=== PATIENT | female | born 1950 | race Caucasian/White ===

== ENCOUNTER → 2022-09-16 15:56 | Outpatient (BNVA) | payer MEDICARE, SELFPAY | PROVIDERS: PCP Internal Medicine; Visit Provider Internal Medicine Endocrinology, Diabetes & Metabolism | DX: E83.52 Hypercalcemia (principal) | CPT/HCPCS: 99202 ==

== ENCOUNTER 2022-12-11 07:52 | Outpatient (AMB) | payer MEDICARE, SELFPAY ==
[2022-12-11 07:55] VITALS: BP 138/82; PULSE 61; BMI 28.9
--- NOTE | 2022-12-11 07:55 | A.OFFVIS_ITS ---
Intake Vital Signs 12/11/22 07:55 Height 5 ft 6 in Weight 179 lb 3.773 oz BMI 28.9 BP 138/82 Blood Pressure Location Rt brachial Position Sitting Pulse 61 Pulse Source Pulse Oximeter Intake Visit Reasons: f/u hypercalcemia Intake Note: Patient present for Hypercalcemia follow up visit. Behavior Analyst Required: No Accompanied by: Self / Same As Patient Allergies NSAIDS (Non-Steroidal Anti-Inflamma Adverse Reaction (Unknown, Verified 12/11/22 07:58) Kidney dysfunction Medication List - Last Reconciled 12/11/22 by Jacobo Vu MD allopurinol 300 mg PO cholecalciferol (vitamin D3) 50 mcg PO DAILY lisinopril 40 mg PO lorazepam mg PO metformin ER 500 mg PO BID metoprolol succinate ER 25 mg PO rosuvastatin 10 mg PO DAILY HPI HPI Comments History of Present Illness Details 72 YO F with who is seen in consultation at the request of PCP for Hypercalcemia. First noted to have high calcium 05/2022 . Not Currently using Calcium supplement . Not Takes IU of Vitamin D daily. Is Currently using chlorthalidone on every other day since this yr Kidney stones: No Osteoporosis: Yes History of [place] use: no Biotin use: No Family history of high calcium or kidney stones: No Renal imaging: in July 2022 no kidney stones DXA: Labs: Repeat labs off chlorthalidone show continued increase of calcium and PTH. [facility] Medical History (Updated 12/11/22 @ 08:26 by Jacobo Vu MD) Hypercalcemia Hypertension Surgical History History of back surgery History of surgery on arm History of total abdominal hysterectomy Hx of partial thyroidectomy Family History Mother Diabetes High blood pressure Father Lymphoma Social History Alcohol intake: current Alcohol intake frequency: holidays/special occasions only Patient Tobacco Use Status: Never used Tobacco Physical Exam Vital Signs: Last Vital Signs Pulse 61 12/11/22 07:55 BP 138/82 12/11/22 07:55 BMI result Body Mass Index 28.9 Const Other: There are no cushingoid or acromegalic features. 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 Renal ultrasound did not show the evidence of kidney stones and patient states that recent bone density shows low bone mass but no osteoporosis The plan is for observation. Will obtain DEXA bone density when available for review. Will also recheck calcium and PTH (2) Hypertension: Code(s): I10 - Essential (primary) hypertension Plan: Patient has resistant hypertension currently on 3 agents with poor control. Will screen for secondary hypertension. Will check aldosterone, renin and plasma metanephrines. Orders: Orders Aldosterone Today E83.52 - Hypercalcemia PTHI Today E83.52 - Hypercalcemia Renin Today E83.52 - Hypercalcemia Metanephrines, Plasma Today I10 - Essential (primary) hypertension Coding Level of Care Code Est Pt Level 3 (34191) Diagnoses Hypercalcemia E83.52 Hypertension I10
== END 2022-12-11 08:35 | disposition home or self-care (01) ==
PROVIDERS: PCP Internal Medicine; Referring Provider Internal Medicine; Visit Provider Internal Medicine Endocrinology, Diabetes & Metabolism
DX: E83.52 Hypercalcemia (principal); I10 Essential (primary) hypertension
CPT/HCPCS: 99213

== ENCOUNTER → 2022-12-11 07:52 | Outpatient (BNVA) | payer MEDICARE, SELFPAY | PROVIDERS: Visit Provider Internal Medicine Endocrinology, Diabetes & Metabolism | DX: E83.52 Hypercalcemia (principal); I10 Essential (primary) hypertension | CPT/HCPCS: 36415; 82088; 83835; 83970; 84244; 99212 ==

== ENCOUNTER 2022-12-11 08:46 | Outpatient (REF) | payer MEDICARE, SELFPAY ==
[2022-12-14 15:24] LABS: Calcium (PTHI) 10.9 mg/dL (8.6-10.4); PTHI 119 pg/mL (16-77)
[2022-12-16 15:18] LABS: Metanephrine, Free 55 pg/mL (<=57); Normetanephrines, Free 148 pg/mL (<=148); Total Metanephrine, Free 203 pg/mL (<=205)
[2022-12-17 15:13] LABS: Renin 0.81 ng/mL/h (0.25-5.82)
== END 2022-12-11 08:47 | disposition home or self-care (01) ==
LOC: HO.10HDL 08:46
PROVIDERS: Absent Provider Internal Medicine; Visit Provider Internal Medicine Endocrinology, Diabetes & Metabolism
DX: Z13.89 Encounter for screening for other disorder (principal)
CPT/HCPCS: 36415; 82088; 83835; 83970; 84244

== ENCOUNTER 2023-03-11 09:16 | Outpatient (AMB) | payer MEDICARE, SELFPAY ==
--- NOTE | 2023-03-11 09:17 | A.OFFVIS_ITS ---
Intake Vital Signs 03/11/23 09:26 Height 5 ft 6 in BMI Reason not done Patient refused/unable BP 142/78 H Blood Pressure Location Rt brachial Position Sitting Pulse 60 Pulse Source Pulse Oximeter Intake Visit Reasons: f/u primary hyperparathyroidism/ resistant HTN Intake Note: Patient present for primary hyperparathyroidism/ resistant HTN follow up visit. Barrel Drum Cutter Required: No Accompanied by: Self / Same As Patient Allergies NSAIDS (Non-Steroidal Anti-Inflamma Adverse Reaction (Unknown, Verified 03/11/23 09:28) Kidney dysfunction HPI HPI Comments History of Present Illness Details 72 YO F with who is seen in consultatio n at the request of PCP for Hypercalcemia. First noted to have high calcium 05/2022 . Not Currently using Calcium supplement . Not Takes IU of Vitamin D daily. Is Currently using chlorthalidone on every other day since this yr Kidney stones: No Osteoporosis: Yes History of [place] use: no Biotin use: No Family history of high calcium or kidney stones: No Renal imaging: in July 2022 no kidney stones DXA: Labs: Repeat labs off chlorthalidone show continued increase of calcium and PTH. Workup for pheochromocytoma and primary hyperparathyroidism were negative [facility] Medical History (Updated 12/11/22 @ 08:26 by Jacobo Vu MD) Hypertension Hypercalcemia Surgical History History of back surgery Hx of partial thyroidectomy History of surgery on arm History of total abdominal hysterectomy Family History Mother Diabetes High blood pressure Father Lymphoma Social History Alcohol intake: current Alcohol intake frequency: holidays/special occasions only Patient Tobacco Use Status: Never used Tobacco Assessment & Plan Assessment & Plan (1) Hypertension: Code(s): I10 - Essential (primary) hypertension Plan: Patient has resistant hypertension currently on 3 agents with poor control. Workup for for secondary hypertension was negative. 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 Renal ultrasound did not show the evidence of kidney stones and patient states that recent bone density shows low bone mass but no osteoporosis The plan is for observation. At this point, patient returned to the care of her primary care provider in should her calcium rise to>11.2 or she develops osteoporosis on bone density or kidney stones, she should be referred back to ended Coding Level of Care Code Est Pt Level 3 (01177) Diagnoses Hypertension I10 Hypercalcemia E83.52
[2023-03-11 09:26] VITALS: BP 142/78; PULSE 60
== END 2023-03-11 10:05 | disposition home or self-care (01) ==
PROVIDERS: PCP Internal Medicine; Visit Provider Internal Medicine Endocrinology, Diabetes & Metabolism
DX: I10 Essential (primary) hypertension (principal); E83.52 Hypercalcemia
CPT/HCPCS: 99213

== ENCOUNTER → 2023-03-11 09:16 | Outpatient (BNVA) | payer MEDICARE, SELFPAY | PROVIDERS: PCP Internal Medicine; Visit Provider Internal Medicine Endocrinology, Diabetes & Metabolism | DX: E83.52 Hypercalcemia (principal); I10 Essential (primary) hypertension | CPT/HCPCS: 99212 ==